=== PATIENT | female | born 1980 | race Caucasian/White ===

== ENCOUNTER 2017-12-15 19:52 | Emergency (ER) | END 2017-12-16 00:05 | disposition home or self-care (01) ==

== ENCOUNTER 2019-01-06 12:18 | Emergency (ER) | payer SELFPAY ==
[~2019-01-06] VITALS: Ht 160 cm; Wt 95.1 kg
[~2019-01-06 12:18] MED LIST: FIORICET PO; IBUP-1542 PO
[2019-01-06 12:47] VITALS: Ht 160 cm; Wt 95.1 kg
[2019-01-06] MEDS ORDERED: KETOROLAC 15 MG INJ IM STA (13:18)
[2019-01-06] MEDS ORDERED: CEFTRIAXONE 1 GM INJ IM ONE (15:30)
[2019-01-06] MEDS ORDERED: LIDOCAINE 1% (MPF) 5 ML VIAL INFIL ONE (15:30)
[2019-01-06] MEDS ORDERED: CEPH-443 PO (16:32)
[2019-01-06] MEDS ORDERED: IBUP-1542 PO (17:16)
--- NOTE | 2019-01-07 09:27 | ERD ---
ER Documentation Chief Complaint Chief Complaint left breast pain/swelling since yesterday HPI This is a 38-year-old Croatian-speaking female presents with multiple complaints left breast swelling and pain since this morning. Patient denies any nipple discharge or drainage. She has been taking Tylenol with mild relief of her pain. She describes the pain as being full, and pressure-like, and constant since this morning. Patient is also complaining of dark and foul-smelling urine. She does report some urinary frequency and urgency. She complains of associated back pain. No fevers. No nausea or vomiting. No abdominal pain. No chest pain or shortness of breath. No other concerns. ROS All systems reviewed and are negative except as per history of present illness. Medications Home Meds Active Scripts Ibuprofen* (Motrin*) 600 Mg Tab, 600 MG PO Q6H PRN for PAIN AND OR ELEVATED TEMP, #30 TAB Prov:DEIDRE VASQUEZC 01/06/19 Cephalexin* (Keflex*) 500 Mg Capsule, 500 MG PO BID for 7 Days, CAP Prov:DEIDRE VASQUEZ-C 01/06/19 Acetamin/Butalbital/Caffeine* (Fioricet*) [id number] Tab, 1 TAB PO Q6H PRN for PAIN, #30 TAB Prov:VIVIENNE ARMANDO 12/15/17 Ibuprofen* (Ibuprofen*) 600 Mg Tab, 600 MG PO Q6, #20 TAB 0 Refills Prov:SHELDON HORTON MD 10/10/15 Allergies Allergies: Coded Allergies: No Known Allergy (Unverified , 02/11/13) PMhx/Soc History of Surgery: No Anesthesia Reaction: No Hx Neurological Disorder: No Hx Respiratory Disorders: No Hx Cardiac Disorders: No Hx Psychiatric Problems: No Hx Miscellaneous Medical Probl: No Hx Alcohol Use: No Hx Substance Use: No Hx Tobacco Use: No FmHx Family History: No diabetes Physical Exam Vitals Vital Signs Date Temp Pulse Resp B/P (MAP) Pulse Ox O2 O2 Flow FiO2 Time Delivery Rate 01/06/19 99.6 102 16 105/57 98 12:47 (73) Physical Exam Const: No acute distress Head: Atraumatic Eyes: Normal Conjunctiva ENT: Normal External Ears, Nose and Mouth. Neck: Full range of motion. No meningismus. Resp: Clear to auscultation bilaterally Breast: + tenderness to palpation along the superior aspect of the L breast, no palpable masses, no nipple discharge, no axillary LAD Cardio: Regular rate and rhythm, no murmurs Abd: Soft, non tender, non distended. Normal bowel sounds Skin: No petechiae or rashes Back: No midline tenderness. + right CVA tenderness Ext: No cyanosis, or edema Neur: Awake and alert Psych: Normal Mood and Affect Results 24 hrs Laboratory Tests Test 01/06/19 13:28 Urine Color YELLOW Urine Clarity SLIGHTLY CLOUDY Urine pH 7.0 Urine Specific [place] 1.015 Urine Ketones NEGATIVE mg/dL Urine Nitrite NEGATIVE mg/dL Urine Bilirubin NEGATIVE mg/dL Urine Urobilinogen NEGATIVE mg/dL Urine Leukocyte Esterase 3+ Evaristo/ul Urine Microscopic RBC 5 /HPF Urine Microscopic WBC 8 /HPF Urine Squamous Epithelial Cells MODERATE /HPF Urine Bacteria FEW /HPF Urine Mucus FEW /HPF Urine Hemoglobin 1+ mg/dL Urine Glucose NEGATIVE mg/dL Urine Total Protein NEGATIVE mg/dl Urine Test NEGATIVE Current Medications Medications Dose Sig/Khoi Start Time Status Last (Trade) Ordered Route PRN Stop Time Admin Dose Reason Admin Ketorolac 15 mg ONCE STAT 01/06/19 DC 01/06/19 Tromethamine IM 13:18 01/06/19 13:53 (Toradol) 13:19 Ceftriaxone 1 gm ONCE ONCE 01/06/19 DC 01/06/19 Sodium IM 15:30 01/06/19 15:08 (Rocephin) 15:31 Lidocaine 5 ml ONCE ONCE 01/06/19 DC 01/06/19 (Xylocaine INFIL 15:30 01/06/19 15:08 1% (Mpf)) 15:31 Procedures/MDM LABS Urine: 3+ leuk esterase, pyuria Uhcg: neg DIAGNOSTIC IMAGING: COMPARISON: Left breast pain. FINDINGS: There is diffuse edema involving the left breast. No discrete mass or abscess is identified there is no suspicious left axillary adenopathy IMPRESSION: Diffuse left breast edema without any sonographic evidence of abscess. Clinical correlation for mastitis is recommended. Sonographic follow-up is recommended in 1 month after treatment. ACR BIRADS 3 (PROBABLY BENIGN) ED COURSE: The patient was given Toradol, Rocephin 1 g IM The medication was well tolerated and the patient had market improvement in symptoms. The patient remained stable throughout ED course. MEDICAL DECISION MAKING: This is a 38-year-old female presents with multiple complaints. Patient compl ains of left breast tenderness and swelling. Physical exam and ultrasound correlate to likely mastitis. Patient is currently not breast-feeding. There is no surrounding cellulitis, abscess or deep space infection. She does not need any antibiotics for this. I recommended ibuprofen and cold compresses. Patient additionally complained of urinary symptoms as well as back pain. She has a low-grade fever with CVA tenderness on physical exam. UA shows evidence of infection. Will treat for pyelonephritis. Patient was given 1 g of IM Rocephin here and discharged home with Keflex. I have low suspicion for severe dehydration or sepsis. Patient discharged home and told to follow-up with PCP in 1 week. Strict return precautions were discussed. PRESCRIPTIONS: Keflex, ibuprofen SPECIALIST FOLLOW UP RECOMMENDED: None Patient has been advised to follow up with primary care in 1-2 days. Departure Diagnosis: Primary Impression: UTI (urinary tract infection) Urinary tract infection type: acute cystitis Hematuria presence: with hematuria Qualified Codes: N30.01 - Acute cystitis with hematuria Additional Impression: Mastitis Condition: Stable Patient Instructions: Understanding Urinary Tract Infections (UTIs), Mastitis Referrals: COMMUNITY CLINICS YOU HAVE RECEIVED A MEDICAL SCREENING EXAM AND THE RESULTS INDICATE THAT YOU DO NOT HAVE A CONDITION THAT REQUIRES URGENT TREATMENT IN THE EMERGENCY DEPARTMENT. FURTHER EVALUATION AND TREATMENT OF YOUR CONDITION CAN WAIT UNTIL YOU ARE SEEN IN YOUR DOCTORS OFFICE WITHIN THE NEXT 1-2 DAYS. IT IS YOUR RESPONSIBILITY TO MAKE AN APPOINTMENT FOR FOLOW-UP CARE. IF YOU HAVE A PRIMARY DOCTOR --you should call your primary doctor and schedule an appointment IF YOU DO NOT HAVE A PRIMARY DOCTOR YOU CAN CALL OUR PHYSICIAN REFERRAL HOTLINE AT IF YOU CAN NOT AFFORD TO SEE A PHYSICIAN YOU CAN CHOSE FROM THE FOLLOWING [facility] CLINICS [facility] [address] [facility] [address] [facility]. [facility] [address] [facility] [address] [facility] [address] [facility]. [facility] [address] [facility]. [facility] YOU HAVE RECEIVED A MEDICAL SCREENING EXAM AND THE RESULTS INDICATE THAT YOU DO NOT HAVE A CONDITION THAT REQUIRES URGENT TREATMENT IN THE EMERGENCY DEPARTMENT. FURTHER EVALUATION AND TREATMENT OF YOUR CONDITION CAN WAIT UNTIL YOU ARE SEEN IN YOUR DOCTORS OFFICE WITHIN THE NEXT 1-2 DAYS. IT IS YOUR RESPONSIBILITY TO M TAYLOR AN APPOINTMENT FOR FOLOW-UP CARE. IF YOU HAVE A PRIMARY DOCTOR --you should call your primary doctor and schedule and appointment IF YOU DO NOT HAVE A PRIMARY DOCTOR YOU CAN CALL OUR PHYSICIAN REFERRAL HOTLINE AT . IF YOU CAN NOT AFFORD TO SEE A PHYSICIAN YOU CAN CHOSE FROM THE FOLLOWING [facility] INSTITUTIONS: [facility] [id number] [place] [address] [address] [place], [place] [id number] [place] [address] [address] [place] [address] Additional Instructions: Apply warm compresses to your left breast to help with the pain. Take ibuprofen for the pain as well. Also take the antibiotics for UTI. Paciente aconseja volver a Departamento de urgencias inmediatamente para sntomas nuevos o que empeoran . Paciente aconseja posteriores con el PCP en 1-2 moreno. Si el paciente no tiene ninguna de atencin primaria pueden seguir con [address] [address] o [facility] [address] [place] [id number] DEIDRE VASQUEZ PA-C Jan 07, 2019 09:26
== END 2019-01-06 17:40 | disposition home or self-care (01) ==
LOC: FTE 12:18
DX: N30.01 Acute cystitis with hematuria (principal); N61.0 Mastitis without abscess
CPT/HCPCS: 76642; 81001; 84703; 96372; 99285; J0696; J1885